=== PATIENT | female | born 1965 | race Two or more races ===

== ENCOUNTER 2024-05-09 17:12 | Emergency (ER) | payer OTHER, SELFPAY ==
[2024-05-09 17:19] VITALS: BP 116/70
--- NOTE | 2024-05-09 18:10 | ED.GENMED ---
History of Present Illness
General
Chief Complaint: Heart Rate Problem
Source: patient
Exam Limitations: none
Time Seen by Provider: 05/09/24 18:00
History of Present Illness
History of Present Illness:
58yoF with a history of depression and hormone replacement for menopausal symptoms presenting for evaluation of palpitations. Symptoms began this afternoon. She reports feeling like her heart was racing. She checked her pulse which felt irregular.
She also felt short of breath with some nausea. Symptoms lasted 2 hours without stopping so she decided to come to the ED. Symptoms have now resolved and she no longer has any palpitations or shortness of breath. She denies any chest pain,
dizziness, syncope. No prior history of heart disease.
Past History
Past History
ED Past Medical History: None
ED Past Surgical History:
Social History
Tobacco: Smoker
Alcohol: Occasional
Drug: None
Personal:
Living: with family
Phy Exam
General Physical Exam
General Presentation: well appearing and no apparent distress
General age: appears stated age
General Skin: warm and dry
General Habitus: normal
General Mental: alert
ENT Exam
ENT Exam: normocephalic
Cardiovascular Exam
Cardiovascular Exam: regular rate/rhythm, no edema and no murmur
Pulmonary Exam
Pulmonary Exam: lungs clear, no respiratory distress, no rales, no crackles, no rhonchi and no wheezing
Neurological Exam
Neurological Exam: alert
Oc Coma Scale
Eye Opening: Spontaneous
Verbal Response: Oriented
Motor Response: Obeys Commands
GCS Total Score: 15
Skin Exam
Skin Exam: normal color and warm/dry
Psychiatric Exam
Psychiatric Exam: normal mood/affect
Course
Orders/Labs/Results
Orders:
Orders
05/09/24 17:14
EKG [Electrocardiogram (*1)] Urgent
Reason for Study: Palpitations
EKG- Treatment ONCE
05/09/24 18:09
Cardiac Monitoring- Treatment ONCE
05/09/24 18:30
Complete Blood Count/With Diff Urgent
Comprehensive Metabolic Panel Urgent
Magnesium Urgent
TSH Reflex To Free T4 Urgent
Troponin I Urgent
Abnormal Lab Results
05/09/24
18:30
RBC 3.61 L 10^6/uL
(4.20-5.40)
Hgb 11.5 L g/dL
(12.0-16.0)
Hct 33.6 L %
(37.0-47.0)
MCH 31.9 H pg
(27.0-31.0)
05/09/24 18:30
05/09/24 18:30
Vital Signs
Initial and Last Documented VS:
Initial Vital Signs
Temp Pulse Resp BP Pulse Ox
98.3 F 87 18 116/70 98
05/09/24 17:19 05/09/24 17:19 05/09/24 17:19 05/09/24 17:19 05/09/24 17:19
Last Documented Vital Signs
Temp Pulse Resp BP Pulse Ox
98.3 F 73 18 99/58 99
05/09/24 17:19 05/09/24 19:30 05/09/24 19:30 05/09/24 20:00 05/09/24 20:00
MDM/Problems Addressed
Differential Diagnosis Includes:
58yoF here with palpitations and SOB. Symptoms lasted 2 hours and are now resolved. No CP. No syncope. VSS. She is well-appearing in no acute distress. Exam reassuring. Normal sinus rhythm noted on monitor during initial assessment. Differential
diagnosis includes but is not limited to: Arrhythmia, thyroid dysfunction, electrolyte abnormality, doubt PE/ACS given resolution of symptoms
Initial ED plan: Check cardiac labs, magnesium, TSH, and EKG.
*EKG
Interpreted by ED Provider?: Yes
EKG Intrepretation Date: 05/09/24
Heart Rate: 81
Rate: normal
Rhythm: sinus
[place]: normal axis
Interval: normal interval
QRS Pattern: normal QRS
Ischemia: no ischemia
*Critical Care Note
Total Time (30-74mins, 75-104mins- exclusive of procedures): Not Applicable
Update Note
Update Note:
Labs overall unremarkable including normal electrolytes and TSH. EKG shows normal sinus rhythm without ischemic changes and troponin within normal limits. No telemetry events throughout ED stay. She remains asymptomatic on reassessment. No
indication for hospitalization at this time. She was advised to follow-up with her PCP for Holter monitor. ED return precautions discussed. Patient in agreement with plan and was discharged in stable condition.
ED Attending Note
-
Portions of this chart may have been created with voice recognition software.� Occasional wrong word or��sound alike� substitutions may have occurred due to the inherent limitations of voice recognition software.
Discharge Plan
Departure
Patient Disposition: Home (Routine Discharge)
Date of Disposition: 05/09/24
Time of Disposition: 19:41
Patient with high blood pressure during this ER visit?: No
Discharge Problem:
Palpitations
Instructions: Palpitations (DC)
Prescriptions:
No Action
duloxetine 30 MG capsule,delayed release(DR/EC)
30 mg PO DAILY
melatonin 3 MG capsule
3 mg PO HS
hydrocodone-acetaminophen 1 TABLET tablet
1 - 2 tab PO Q4HPRN PRN (Reason: moderate to severe pain) Qty: 12 0RF
Referrals:
[facility] [Provider Group]
NONE,* [Family Provider] -
Activity Restrictions/Additional Instructions:
Please follow-up with your family doctor for a Holter monitor. Return to the ER with any new or worsening symptoms including chest pain or loss of consciousness.
Interventions
Interventions:
*Risk Screen - Suicide Last Done: 05/09/24 17:19
*General Assessment Last Done: 05/09/24 17:19
*Neglect/Abuse Screening Last Done: 05/09/24 17:19
*ED- Fall Risk Assessment Last Done: 05/09/24 17:19
*ED COVID-19 Vaccine History Last Done: 05/09/24 17:19
*Nursing Disposition Last Done: 05/09/24 20:19
ED- Cardiac Assessment Last Done: 05/09/24 19:04
ED- Pulmonary Assessment Last Done: 05/09/24 18:38
Discharge Date and Time
Discharge Date/Time: 05/09/24 20:20
Print Language: ITALIAN
[2024-05-09 18:12] VITALS: BP 102/51
[2024-05-09 18:38] VITALS: BMI 20.1
[2024-05-09 18:38] LABS: % Basophils 0.7 % (0-2); % Eosinophils 0.6 % (0-6); % Immature Granulocytes 0.3 % (0-0.5); % Lymphocytes 29.1 % (20.5-51.1); % Monocytes 6.1 % (1.7-9.3); % Neutrophils 63.2 % (42.2-75.2); Absolute Basophils 0.1 10^3/uL (0-0.2); Absolute Lymphocytes 2.1 10^3/uL (1.2-3.4); Absolute Monocytes 0.4 10^3/uL (0.1-0.6); Absolute Neutrophils 4.5 10^3/uL (1.4-6.5); Hematocrit 33.6 % (37.0-47.0); Hemoglobin 11.5 g/dL (12.0-16.0); Mean Corp Hgb Conc. 34.2 g/dL (33.0-37.0); Mean Corpuscular Hgb 31.9 pg (27.0-31.0); Mean Corpuscular Volume 93.1 fL (81.0-99.0); Mean Platelet Volume 9.7 fL (7.4-10.4); Nucleated Red Blood Cells % 0 %; Platelet Count 181 10^3/uL (130-400); Red Blood Cell Count 3.61 10^6/uL (4.20-5.40); Red Cell Dist. Width 11.9 % (11.5-14.5); White Blood Cell Count 7.1 10^3/uL (4.8-10.8)
[2024-05-09 18:54] LABS: ALT (SGPT) 20 U/L (0-35); AST (SGOT) 23 U/L (14-36); Albumin 4.4 g/dl (3.5-5.0); Alkaline Phosphatase 45 U/L (38-126); Blood Urea Nitrogen 17 mg/dl (7-17); Calcium 9.5 mg/dl (8.4-10.2); Carbon Dioxide 30 mmol/L (22-30); Chloride 102 mmol/L (98-107); Estimated Creatinine Clearance 81 ml/min; Glucose 90 mg/dl (70-99); Magnesium 2.1 mg/dl (1.6-2.3); Sodium 137 mmol/L (135-145); Total Bilirubin 0.9 mg/dl (0.2-1.3); Total Protein 6.6 g/dl (6.3-8.2); eGFR > 60.00
[2024-05-09 19:00] VITALS: BP 106/57
[2024-05-09 19:00] LABS: Troponin I < 0.012 ng/ml
[2024-05-09 19:24] LABS: TSH Reflex To Free T4 1.17 uIU/ml (0.47-4.68)
[2024-05-09 20:00] VITALS: BP 99/58
== END 2024-05-09 20:20 | disposition home or self-care (01) ==
LOC: EMR 17:12
PROVIDERS: Physician Assistant; EMERGENCY PHYSICIAN Emergency Medicine
DX: R00.2 Palpitations (principal); R06.02 Shortness of breath; F17.200 Nicotine dependence, unspecified, uncomplicated; F32.A Depression, unspecified; Z79.890 Hormone replacement therapy
CPT/HCPCS: 99283; 80053; 83735; 84443; 84484; 85025; 93005